=== PATIENT | male | born 1990 | race Two or more races ===

== ENCOUNTER 2018-04-11 15:38 | Emergency (ER) | payer BC, MEDICAID, OTHER ==
[~2018-04-11] VITALS: Ht 180.3 cm; Wt 82.8 kg
[2018-04-11 17:57] VITALS: BP 131/88
== END 2018-04-11 18:10 | disposition home or self-care (01) ==
LOC: ED 17:49
DX: S16.1XXA Strain of muscle, fascia and tendon at neck level, initial encounter (principal); V89.2XXA Person injured in unspecified motor-vehicle accident, traffic, initial encounter; Y93.89 Activity, other specified; Y99.8 Other external cause status; Y92.410 Unspecified street and highway as the place of occurrence of the external cause
CPT/HCPCS: 72125; 99284

== ENCOUNTER 2019-02-08 21:40 | Emergency (ER) | payer SELFPAY ==
[~2019-02-08] VITALS: Ht 180.3 cm; Wt 77.3 kg
== END 2019-02-08 22:16 | disposition left against medical advice (07) ==
LOC: ED 22:10
DX: R00.8 Other abnormalities of heart beat (principal); Z53.21 Procedure and treatment not carried out due to patient leaving prior to being seen by health care provider
CPT/HCPCS: 93005

== ENCOUNTER 2019-12-14 15:10 | Emergency (ER) | payer MEDICAID ==
[~2019-12-14] VITALS: Ht 175.3 cm; Wt 63.9 kg
[2019-12-14 15:59] LABS: ALANINE AMINOTRANSFERASE 11 U/L (12-78); ALBUMIN 2.1 g/dL (3.4-5.0); ANION GAP 5 mmol/L (5-15); CALCIUM 8.3 mg/dL (8.5-10.1); CHLORIDE 103 mmol/L (98-107); CREATININE 0.64 mg/dL (0.7-1.3)
[2019-12-14 16:01] LABS: ALKALINE PHOSPHATASE 106 U/L (45-117); BILIRUBIN,TOTAL 0.4 mg/dL (0.2-1.0); TOTAL PROTEIN 7.2 g/dL (6.4-8.2)
--- NOTE | 2019-12-14 16:16 | NUR ---
HOSPITAL CARRIER: FROM LOBBY TO ROOM AT THIS TIME
--- NOTE | 2019-12-14 16:17 | NUR ---
pt taken to room via Wheelchair. Changed into hospital gown, connected to monitors. pt in with C/O of "belly pain"
[2019-12-14 16:20] LABS: MEAN CORPUSCULAR HEMOGLOBIN 28.3 pg (27.5-34.5); MEAN CORPUSCULAR HGB CONC 31.8 g/dL (33.2-36.2); MEAN CORPUSCULAR VOLUME 88.9 fL (81-97); MEAN PLATELET VOLUME 7.6 fL (7.4-10.4); PLATELET COUNT 757 x10^3/uL (130-400); RED BLOOD COUNT 3.85 x10^6/uL (4.38-5.82); RED CELL DISTRIBUTION WIDTH 20.2 % (9.4-14.8)
[2019-12-14] MEDS ORDERED: SODIUM CHLORIDE 0.9% 1,000 ML IV ONE (16:28)
[2019-12-14] MEDS ORDERED: SODIUM CHLORIDE 0.9% 1,000ML IVBOLUS ONE (16:30)
[2019-12-14] MEDS ORDERED: SODIUM CHLORIDE FLUSH 10ML SYR IVF ONE (16:30)
[2019-12-14] MEDS ORDERED: ONDANSETRON 2MG/ML, 2ML IVPush ONE (16:30)
[2019-12-14 16:39] LABS: MD YES
[2019-12-14] MEDS ORDERED: HYDROmorphone 1 MG/ML, 1ML INJ ONE ×2 (16:41→17:37)
[2019-12-14] MEDS ORDERED: ONDANSETRON 2MG/ML, 2ML ONE (16:41)
[2019-12-14 16:42] LABS: BAND#(MANUAL) 1.02 x10^3/uL; BANDS%(MANUAL) 10 % (0-7); BASOS% (MANUAL) 1 % (0-1); LYMPH#(MANUAL) 1.63 x10^3/uL (1-3.4); LYMPHS% (MANUAL) 16 % (22-44); MONOS#(MANUAL) 0.41 x10^3/uL (0.3-2.7); MONOS% (MANUAL) 4 % (2-9); REACTIVE LYMPHS % (MANUAL) 1 % (0-0); SEG#(MANUAL) 6.94 x10^3/uL (1.8-6.8); SEGS% (MANUAL) 68 % (42-75)
[2019-12-14 16:45] LABS: HYPOCHROMIA 1+; MICROCYTOSIS 1+; POLYCHROMASIA 1+; SPHEROCYTES 1+
[2019-12-14 16:46] LABS: <PLATELET ESTIMATE> INCREASED; <PLT MORPHOLOGY> NORMAL PLT MORPH
[2019-12-14] MEDS: HYDROmorphone 2 MG/ML, 1ML IVPush PRN ×2 (16:58→17:38)
--- NOTE | 2019-12-14 17:29 | NUR ---
pt out of room to CT
[2019-12-14] MEDS ORDERED: OMNIPAQUE 350 MG/ML, 100ML BOTTLE ONE (17:33)
--- NOTE | 2019-12-14 17:35 | NUR ---
Returned from CT. C/O 05/12 sharp abd pain
[2019-12-14 18:13] VITALS: BP 126/87
[2019-12-14 18:13] LABS: MICROSCOPIC NOT IND
[2019-12-14 18:29] LABS: CULTURE INDICATED? NO
== END 2019-12-14 19:07 | disposition home or self-care (01) ==
LOC: ED 18:36
DX: A08.8 Other specified intestinal infections (principal); R00.0 Tachycardia, unspecified
CPT/HCPCS: 36415; 74177; 80053; 81003; 83690; 85025; 93005; 96361; 96374; 96375; 96376; 99285; J1170; J2405; J7030; Q9967

== ENCOUNTER 2020-01-27 20:34 | Inpatient (IN) | payer MEDICAID ==
[~2020-01-27] VITALS: Ht 175.3 cm; Wt 66.3 kg
--- NOTE | 2020-01-27 20:58 | NUR ---
Patient presents to ER c/o abd pain in all quadrants. He states he has had the pain since November but it has been getting worse. He was hospitalized in October for three weeks; patient was intubated for approx 1 week. Patient has had diarrhea since his discharge from the hospital. He was seen at [facility] since then and they stated he needed to see a GI doc. Patient has not seen a GI doc yet. Patient still "does not feel right." Patient is in NAD. Respirations even and unlabored.
[2020-01-27] MEDS ORDERED: ONDANSETRON 2MG/ML, 2ML ONE (21:27)
[2020-01-27] MEDS ORDERED: MORPHINE SULFATE 4 MG/ML, 1ML ONE (21:27)
[2020-01-27] MEDS ORDERED: ONDANSETRON 2MG/ML, 2ML IVPush ONE (21:30)
[2020-01-27] MEDS ORDERED: SODIUM CHLORIDE FLUSH 10ML SYR IVF ONE (21:30)
[2020-01-27] MEDS ORDERED: SODIUM CHLORIDE 0.9% 1,000ML IVBOLUS ONE ×2 (21:30→22:30)
[2020-01-27] MEDS ORDERED: MORPHINE SULFATE 4 MG/ML, 1ML IVPush PRN (21:30)
--- NOTE | 2020-01-27 21:31 | NUR ---
IV START, LABS DRAWN AND SENT. IVF INFUSING PER EMAR. PT APPEARS ANXIOUS. REPORTS "SPASM" IN ARM PRIOR TO IV START. PT REQUESTS TELEVISION ON.
[2020-01-27 21:40] LABS: MEAN CORPUSCULAR HEMOGLOBIN 25.7 pg (27.5-34.5); MEAN CORPUSCULAR HGB CONC 32.2 g/dL (33.2-36.2); MEAN CORPUSCULAR VOLUME 79.9 fL (81-97); MEAN PLATELET VOLUME 7.5 fL (7.4-10.4); PLATELET COUNT 732 x10^3/uL (130-400); RED BLOOD COUNT 5.25 x10^6/uL (4.38-5.82); RED CELL DISTRIBUTION WIDTH 19.1 % (9.4-14.8)
--- NOTE | 2020-01-27 21:41 | NUR ---
FLUIDS RUNNING. PT MEDICATED AND GIVEN A URINAL FOR UA. US AT BEDSIDE. CALL LIGHT IN REACH
[2020-01-27 21:53] LABS: BASOPHILS # (AUTO) 0.06 x10^3/uL (0-0.1); BASOPHILS % (AUTO) 0 % (0-1); EOSINOPHILS % (AUTO) 0 % (1-7); LYMPHOCYTES # (AUTO) 0.77 x10^3/uL (1-3.4); LYMPHOCYTES % (AUTO) 4 % (22-44); MD SCAN; MONOCYTES # (AUTO) 1.28 x10^3/uL (0.2-0.8); MONOCYTES % (AUTO) 6 % (2-9); NEUTROPHILS # (AUTO) 19.11 x10^3/uL (1.8-6.8); NEUTROPHILS % (AUTO) 90 % (42-75)
[2020-01-27 21:55] LABS: ALANINE AMINOTRANSFERASE 10 U/L (12-78); ALBUMIN 2.4 g/dL (3.4-5.0); ANION GAP 11 mmol/L (5-15); CALCIUM 8.9 mg/dL (8.5-10.1); CHLORIDE 100 mmol/L (98-107); CREATININE 0.93 mg/dL (0.7-1.3)
[2020-01-27 21:58] LABS: ALKALINE PHOSPHATASE 152 U/L (45-117); BILIRUBIN,TOTAL 0.2 mg/dL (0.2-1.0); TOTAL PROTEIN 7.9 g/dL (6.4-8.2)
--- NOTE | 2020-01-27 22:27 | NUR ---
2ND LITER OF FLUIDS RUNNING. PT TO CT
[2020-01-27] MEDS ORDERED: OMNIPAQUE 350 MG/ML, 100ML BOTTLE ONE (22:40)
[2020-01-27] MEDS ORDERED: HYDROmorphone 2 MG/ML, 1ML ONE (23:07)
[2020-01-27] MEDS ORDERED: PIPERACILLIN/TAZO/PMX 3.375GM 50 ML ONE (23:13)
[2020-01-27] MEDS ORDERED: PIPERACILLIN/TAZO/PMX 3.375GM 50 ML IV ONE (23:30)
[2020-01-27] MEDS ORDERED: HYDROmorphone 2 MG/ML, 1ML IVPush PRN (23:30)
--- NOTE | 2020-01-27 23:44 | NUR ---
ADMITTING MD AT BEDSIDE. EPORT CALLED TO FLOOR. WILL PLACE NG TUBE AFTER MD IS DONE
[2020-01-28] MEDS ORDERED: DIAZEPAM 5 MG/ML, 2ML ONE (00:15)
[2020-01-28 00:20] LABS: MICROSCOPIC NOT IND
[2020-01-28 00:21] LABS: CULTURE INDICATED? NO
[2020-01-28 00:25] LABS: AMPHETAMINE SCREEN, URINE Negative (Negative); BARBITURATE SCREEN, URINE Negative (Negative); BENZODIAZEPINE SCREEN, URINE Negative (Negative); CANNABINOID SCREEN, URINE Positive (Negative); COCAINE SCREEN, URINE Negative (Negative); METHADONE SCREEN, URINE Negative (Negative); OPIATE SCREEN, URINE Positive (Negative)
[2020-01-28] MEDS ORDERED: ONDANSETRON 2MG/ML, 2ML IVPush PRN (00:30)
[2020-01-28] MEDS ORDERED: hydrALAzine 20 MG/ML, 1ML IVPush PRN (00:30)
[2020-01-28] MEDS ORDERED: THIAMINE 200 MG in SODIUM CHLORIDE 0.9% 50 ML IV ONE (00:30)
[2020-01-28] MEDS ORDERED: DIAZEPAM 5 MG/ML, 10ML VIAL IV ONE (00:30)
[2020-01-28 00:37] LABS: INTERNATIONAL NORMALIZED RATIO 1.07 (0.93-1.1); PROTHROMBIN TIME 11.4 Seconds (9.6-11.5)
--- NOTE | 2020-01-28 00:40 | NUR ---
ng tube placed. Pt tolerated well. placedment verified by auscultation. placed on low continuous suction.
[2020-01-28 00:50] VITALS: BP 122/90
[2020-01-28] MEDS: LACTATED RINGERS 1,000 ML IV SCH ×4 (01:06→22:47)
[2020-01-28] MEDS ORDERED: [UNRECOGNIZED DRUG - OTHER] PO (01:38)
[2020-01-28] MEDS: HYDROmorphone 2 MG/ML, 1ML IVPush PRN ×5 (02:57→22:44)
[2020-01-28 03:13] LABS: ANION GAP 4 mmol/L (5-15); CALCIUM 8.1 mg/dL (8.5-10.1); CHLORIDE 105 mmol/L (98-107); CREATININE 0.48 mg/dL (0.7-1.3)
[2020-01-28 03:29] LABS: BASOPHILS # (AUTO) 0.05 x10^3/uL (0-0.1); BASOPHILS % (AUTO) 0 % (0-1); EOSINOPHILS % (AUTO) 0 % (1-7); LYMPHOCYTES % (AUTO) 9 % (22-44); MD SCAN; MEAN CORPUSCULAR HEMOGLOBIN 25.5 pg (27.5-34.5); MEAN CORPUSCULAR HGB CONC 31.7 g/dL (33.2-36.2); MEAN CORPUSCULAR VOLUME 80.5 fL (81-97); MEAN PLATELET VOLUME 6.9 fL (7.4-10.4); MONOCYTES # (AUTO) 1.89 x10^3/uL (0.2-0.8); MONOCYTES % (AUTO) 11 % (2-9); NEUTROPHILS # (AUTO) 14.07 x10^3/uL (1.8-6.8); NEUTROPHILS % (AUTO) 80 % (42-75); PLATELET COUNT 564 x10^3/uL (130-400); RED BLOOD COUNT 4.29 x10^6/uL (4.38-5.82); RED CELL DISTRIBUTION WIDTH 18.7 % (9.4-14.8)
[2020-01-28] MEDS: KETOROLAC 30 MG/1 ML IV PRN ×3 (06:08→18:29)
[2020-01-28] MEDS: PIPERACILLIN/TAZO/PMX 3.375GM 50 ML IV SCH ×3 (06:29→18:23)
[2020-01-28] MEDS: PANTOPRAZOLE 40 MG IV IVPush SCH (07:34)
[2020-01-28 08:09] VITALS: BP 116/82
[2020-01-28 12:49] VITALS: BP 125/89
[2020-01-28 13:32] LABS: OCCULT BLOOD POSITIVE (NEGATIVE)
[2020-01-28] MEDS ORDERED: GOLYTELY 4,000ML ORAL.SOL PO SCH (20:00)
[2020-01-28 21:33] VITALS: BP 110/76
[2020-01-29] MEDS: PIPERACILLIN/TAZO/PMX 3.375GM 50 ML IV SCH ×4 (00:33→17:37)
[2020-01-29 00:56] VITALS: BP 110/74
[2020-01-29] MEDS: KETOROLAC 30 MG/1 ML IV PRN ×3 (04:14→17:49)
[2020-01-29] MEDS: HYDROmorphone 2 MG/ML, 1ML IVPush PRN ×3 (04:15→17:49)
[2020-01-29 05:06] LABS: BASOPHILS # (AUTO) 0.02 x10^3/uL (0-0.1); BASOPHILS % (AUTO) 0 % (0-1); EOSINOPHILS # (AUTO) 0.07 x10^3/uL (0-0.4); EOSINOPHILS % (AUTO) 1 % (1-7); LYMPHOCYTES # (AUTO) 1.98 x10^3/uL (1-3.4); LYMPHOCYTES % (AUTO) 26 % (22-44); MD NO; MEAN CORPUSCULAR HEMOGLOBIN 25.8 pg (27.5-34.5); MEAN CORPUSCULAR HGB CONC 32.3 g/dL (33.2-36.2); MEAN CORPUSCULAR VOLUME 79.9 fL (81-97); MEAN PLATELET VOLUME 7.5 fL (7.4-10.4); MONOCYTES # (AUTO) 0.99 x10^3/uL (0.2-0.8); MONOCYTES % (AUTO) 13 % (2-9); NEUTROPHILS # (AUTO) 4.43 x10^3/uL (1.8-6.8); NEUTROPHILS % (AUTO) 59 % (42-75); PLATELET COUNT 405 x10^3/uL (130-400); RED BLOOD COUNT 3.75 x10^6/uL (4.38-5.82); RED CELL DISTRIBUTION WIDTH 18.5 % (9.4-14.8)
[2020-01-29 05:15] LABS: ANION GAP 3 mmol/L (5-15); CALCIUM 7.6 mg/dL (8.5-10.1); CHLORIDE 106 mmol/L (98-107)
[2020-01-29 05:16] LABS: CREATININE 0.57 mg/dL (0.7-1.3)
[2020-01-29] MEDS: LACTATED RINGERS 1,000 ML IV SCH ×3 (06:15→17:38)
[2020-01-29 06:43] VITALS: BP 98/58
[2020-01-29] MEDS: PANTOPRAZOLE 40 MG IV IVPush SCH (08:07)
[2020-01-29] MEDS ORDERED: HYDROmorphone 2 MG/ML, 1ML IVPush PRN (09:00)
[2020-01-29] MEDS ORDERED: ONDANSETRON 2MG/ML, 2ML IV PRN (09:00)
[2020-01-29] MEDS ORDERED: OXYcodone 5 MG/5 ML ORAL.SOL UDC PO PRN (09:00)
[2020-01-29] MEDS ORDERED: FENTANYL PF 100 MCG/2ML IV PRN (09:00)
[2020-01-29] MEDS ORDERED: LORazepam 2 MG/ML, 1ML IVPush PRN (09:00)
[2020-01-29] MEDS ORDERED: ACETAMINOPHEN 325 MG TABLET PO PRN (09:00)
[2020-01-29] MEDS ORDERED: FENTANYL PF 100 MCG/2ML ONE (09:16)
[2020-01-29] MEDS ORDERED: ROCURONIUM 10 MG/ML,10ML ONE (09:30)
[2020-01-29] MEDS ORDERED: SUGAMMADEX 200 MG/2 ML IVPush ONE (09:30)
[2020-01-29] MEDS ORDERED: PROPOFOL 10 MG/ML, 100ML IV ONE (09:30)
[2020-01-29 13:34] VITALS: BP 96/59
[2020-01-29] MEDS: methylPREDNISolone SOD SUCC 40 MG/ML IVPush SCH (14:36)
[2020-01-29 18:19] VITALS: BP 119/69
[2020-01-30] MEDS: PIPERACILLIN/TAZO/PMX 3.375GM 50 ML IV SCH ×4 (00:53→17:41)
[2020-01-30 01:02] VITALS: BP 114/64
[2020-01-30] MEDS: KETOROLAC 30 MG/1 ML IV PRN (01:18)
[2020-01-30] MEDS: methylPREDNISolone SOD SUCC 40 MG/ML IVPush SCH ×2 (02:28→14:17)
[2020-01-30] MEDS: HYDROmorphone 2 MG/ML, 1ML IVPush PRN ×4 (02:28→21:40)
[2020-01-30] MEDS: LACTATED RINGERS 1,000 ML IV SCH (02:54)
[2020-01-30 06:29] LABS: ALBUMIN 1.8 g/dL (3.4-5.0); ANION GAP 9 mmol/L (5-15); CHLORIDE 109 mmol/L (98-107); CREATININE 0.38 mg/dL (0.7-1.3)
[2020-01-30 06:31] LABS: BASOPHILS # (AUTO) 0.01 x10^3/uL (0-0.1); BASOPHILS % (AUTO) 0 % (0-1); EOSINOPHILS % (AUTO) 0 % (1-7); LYMPHOCYTES # (AUTO) 0.67 x10^3/uL (1-3.4); LYMPHOCYTES % (AUTO) 15 % (22-44); MD NO; MEAN CORPUSCULAR HEMOGLOBIN 25.8 pg (27.5-34.5); MEAN CORPUSCULAR HGB CONC 32.4 g/dL (33.2-36.2); MEAN CORPUSCULAR VOLUME 79.7 fL (81-97); MEAN PLATELET VOLUME 7.8 fL (7.4-10.4); MONOCYTES # (AUTO) 0.12 x10^3/uL (0.2-0.8); MONOCYTES % (AUTO) 3 % (2-9); NEUTROPHILS # (AUTO) 3.78 x10^3/uL (1.8-6.8); NEUTROPHILS % (AUTO) 82 % (42-75); PLATELET COUNT 423 x10^3/uL (130-400); RED BLOOD COUNT 3.84 x10^6/uL (4.38-5.82); RED CELL DISTRIBUTION WIDTH 19.3 % (9.4-14.8)
[2020-01-30 06:56] VITALS: BP 110/75
[2020-01-30] MEDS: PANTOPRAZOLE 40 MG IV IVPush SCH (07:52)
[2020-01-30] MEDS: POTASSIUM CHLORIDE 20 MEQ in LACTATED RINGERS 1,000 ML IV SCH (10:33)
[2020-01-30 13:22] VITALS: BP 110/62
[2020-01-30] MEDS: POLYETHYLENE GLYCOL 17 GM PACKET PO SCH (14:17)
[2020-01-30 20:18] VITALS: BP 130/85
[2020-01-31] MEDS: PIPERACILLIN/TAZO/PMX 3.375GM 50 ML IV SCH ×4 (00:01→17:58)
[2020-01-31 00:33] VITALS: BP 120/85
[2020-01-31] MEDS: methylPREDNISolone SOD SUCC 40 MG/ML IVPush SCH ×2 (01:21→13:01)
[2020-01-31] MEDS: POTASSIUM CHLORIDE 20 MEQ in LACTATED RINGERS 1,000 ML IV SCH ×2 (05:03→19:40)
[2020-01-31] MEDS: HYDROmorphone 2 MG/ML, 1ML IVPush PRN ×5 (05:04→21:59)
[2020-01-31 05:41] LABS: BASOPHILS % (AUTO) 0 % (0-1); EOSINOPHILS # (AUTO) 0.02 x10^3/uL (0-0.4); EOSINOPHILS % (AUTO) 0 % (1-7); LYMPHOCYTES # (AUTO) 0.66 x10^3/uL (1-3.4); LYMPHOCYTES % (AUTO) 13 % (22-44); MD NO; MEAN CORPUSCULAR HEMOGLOBIN 25.9 pg (27.5-34.5); MEAN CORPUSCULAR HGB CONC 32.2 g/dL (33.2-36.2); MEAN CORPUSCULAR VOLUME 80.3 fL (81-97); MEAN PLATELET VOLUME 7.7 fL (7.4-10.4); MONOCYTES # (AUTO) 0.21 x10^3/uL (0.2-0.8); MONOCYTES % (AUTO) 4 % (2-9); NEUTROPHILS # (AUTO) 4.14 x10^3/uL (1.8-6.8); NEUTROPHILS % (AUTO) 82 % (42-75); PLATELET COUNT 412 x10^3/uL (130-400); RED BLOOD COUNT 3.64 x10^6/uL (4.38-5.82); RED CELL DISTRIBUTION WIDTH 19.1 % (9.4-14.8)
[2020-01-31 05:44] LABS: CALCIUM 7.7 mg/dL (8.5-10.1); CHLORIDE 111 mmol/L (98-107)
[2020-01-31 05:50] LABS: ALANINE AMINOTRANSFERASE 7 U/L (12-78); ALBUMIN 1.8 g/dL (3.4-5.0); ALKALINE PHOSPHATASE 91 U/L (45-117); ANION GAP 7 mmol/L (5-15); BILIRUBIN,TOTAL 0.2 mg/dL (0.2-1.0); CREATININE 0.46 mg/dL (0.7-1.3); TOTAL PROTEIN 5.7 g/dL (6.4-8.2)
[2020-01-31 08:00] VITALS: BP 115/71
[2020-01-31] MEDS ORDERED: POTASSIUM PHOSPHATE 44 MEQ in SODIUM CHLORIDE 0.9% 500 ML IV ONE (08:00)
[2020-01-31] MEDS: POLYETHYLENE GLYCOL 17 GM PACKET PO SCH (08:37)
[2020-01-31] MEDS: PANTOPRAZOLE 40 MG IV IVPush SCH (08:37)
[2020-01-31] MEDS ORDERED: MAALOX/HYOSCYAMINE/LIDOCAINE 45 ML BTL PO PRN (12:30)
[2020-01-31 15:29] VITALS: BP 117/72
[2020-01-31 19:39] VITALS: BP 115/74
[2020-02-01] MEDS: PIPERACILLIN/TAZO/PMX 3.375GM 50 ML IV SCH ×3 (00:29→11:51)
[2020-02-01 00:39] VITALS: BP 100/61
[2020-02-01] MEDS: methylPREDNISolone SOD SUCC 40 MG/ML IVPush SCH ×2 (01:12→13:32)
[2020-02-01] MEDS: HYDROmorphone 2 MG/ML, 1ML IVPush PRN ×8 (01:47→23:17)
[2020-02-01] MEDS: POTASSIUM CHLORIDE 20 MEQ in LACTATED RINGERS 1,000 ML IV SCH (04:58)
[2020-02-01 05:12] LABS: BASOPHILS # (AUTO) 0.02 x10^3/uL (0-0.1); BASOPHILS % (AUTO) 0 % (0-1); EOSINOPHILS % (AUTO) 0 % (1-7); LYMPHOCYTES # (AUTO) 0.97 x10^3/uL (1-3.4); LYMPHOCYTES % (AUTO) 16 % (22-44); MD NO; MEAN CORPUSCULAR HEMOGLOBIN 25.7 pg (27.5-34.5); MEAN CORPUSCULAR HGB CONC 31.7 g/dL (33.2-36.2); MONOCYTES # (AUTO) 0.25 x10^3/uL (0.2-0.8); MONOCYTES % (AUTO) 4 % (2-9); NEUTROPHILS # (AUTO) 4.72 x10^3/uL (1.8-6.8); NEUTROPHILS % (AUTO) 79 % (42-75); PLATELET COUNT 444 x10^3/uL (130-400); RED BLOOD COUNT 4.01 x10^6/uL (4.38-5.82); RED CELL DISTRIBUTION WIDTH 19.4 % (9.4-14.8)
[2020-02-01 05:20] LABS: ANION GAP 7 mmol/L (5-15); CALCIUM 7.7 mg/dL (8.5-10.1); CHLORIDE 111 mmol/L (98-107); CREATININE 0.52 mg/dL (0.7-1.3)
[2020-02-01 07:00] VITALS: BP 111/73
[2020-02-01] MEDS: PANTOPRAZOLE 40 MG IV IVPush SCH (08:23)
[2020-02-01] MEDS: POLYETHYLENE GLYCOL 17 GM PACKET PO SCH (08:24)
[2020-02-01] MEDS ORDERED: GOLYTELY 4,000ML ORAL.SOL PO SCH (09:00)
[2020-02-01] MEDS ORDERED: GOLYTELY 4,000ML ORAL.SOL PO ONE (09:30)
[2020-02-01] MEDS: metroNIDAZOLE 500 MG TABLET PO SCH ×3 (11:51→23:16)
[2020-02-01] MEDS: NEOMYCIN SULFATE 500 MG TABLET PO SCH ×3 (11:51→23:17)
[2020-02-01 14:00] VITALS: BP 120/83
[2020-02-01 18:56] VITALS: BP 117/71
[2020-02-01] MEDS: KETOROLAC 30 MG/1 ML IV PRN (20:34)
[2020-02-02 01:07] VITALS: BP 101/68
[2020-02-02] MEDS: methylPREDNISolone SOD SUCC 40 MG/ML IVPush SCH ×2 (01:28→13:58)
[2020-02-02] MEDS: HYDROmorphone 2 MG/ML, 1ML IVPush PRN ×6 (01:29→23:50)
[2020-02-02] MEDS ORDERED: HYDROmorphone 1 MG/ML, 1ML INJ IV ONE (01:30)
[2020-02-02] MEDS ORDERED: LORazepam 1MG TABLET PO ONE (01:30)
[2020-02-02 05:25] LABS: MEAN CORPUSCULAR HGB CONC 32.1 g/dL (33.2-36.2); MEAN CORPUSCULAR VOLUME 80.9 fL (81-97); PLATELET COUNT 588 x10^3/uL (130-400); RED BLOOD COUNT 4.86 x10^6/uL (4.38-5.82)
[2020-02-02 05:30] LABS: ALBUMIN 2.1 g/dL (3.4-5.0); ANION GAP 6 mmol/L (5-15); CALCIUM 8.5 mg/dL (8.5-10.1); CHLORIDE 107 mmol/L (98-107); CREATININE 0.61 mg/dL (0.7-1.3)
[2020-02-02 05:41] LABS: MD YES
[2020-02-02 05:44] LABS: LYMPH#(MANUAL) 0.54 x10^3/uL (1-3.4); LYMPHS% (MANUAL) 2 % (22-44); MONOS#(MANUAL) 0.54 x10^3/uL (0.3-2.7); MONOS% (MANUAL) 2 % (2-9); SEG#(MANUAL) 25.73 x10^3/uL (1.8-6.8); SEGS% (MANUAL) 96 % (42-75)
[2020-02-02 05:46] LABS: <PLATELET ESTIMATE> INCREASED; <PLT MORPHOLOGY> NORMAL PLT MORPH; ANISOCYTOSIS 1+; HYPOCHROMIA 1+; MICROCYTOSIS 1+
[2020-02-02] MEDS ORDERED: BUPIVACAINE/PF 0.5% ONE (07:32)
[2020-02-02] MEDS ORDERED: INDOCYANINE GREEN 25 MG VIAL ONE (07:32)
[2020-02-02] MEDS ORDERED: SUCCINYLCHOLINE 20 MG/ML, 10ML ONE (07:40)
[2020-02-02] MEDS ORDERED: PROPOFOL 10 MG/ML, 20ML ONE (07:40)
[2020-02-02] MEDS ORDERED: ROCURONIUM 10 MG/ML,10ML ONE (07:40)
[2020-02-02] MEDS ORDERED: CEFOTETAN 2 GM ONE (07:40)
[2020-02-02] MEDS ORDERED: DEXAMETHASONE 4 MG/ML, 1ML ONE (07:40)
[2020-02-02] MEDS ORDERED: ONDANSETRON 2MG/ML, 2ML ONE (07:40)
[2020-02-02] MEDS ORDERED: PROMETHAZINE 25 MG/ML, 1ML IV PRN (09:00)
[2020-02-02] MEDS ORDERED: ALBUTEROL SULFATE 2.5 MG/3 ML NPPB PRN (09:00)
[2020-02-02] MEDS ORDERED: ONDANSETRON 2MG/ML, 2ML IVPush PRN (09:00)
[2020-02-02] MEDS ORDERED: OXYcodone 5 MG/5 ML ORAL.SOL UDC PO PRN (09:00)
[2020-02-02] MEDS ORDERED: DIAZEPAM 5 MG/ML, 2ML IV PRN ×2 (09:00)
[2020-02-02] MEDS ORDERED: LABETALOL 5MG/ML, 20ML IV PRN (09:00)
[2020-02-02] MEDS ORDERED: hydrALAzine 20 MG/ML, 1ML IV PRN (09:00)
[2020-02-02] MEDS ORDERED: METOCLOPRAMIDE 5 MG/ML, 2ML IV PRN (09:00)
[2020-02-02] MEDS ORDERED: MEPERIDINE/PF 25MG/0.5ML IVPush PRN (09:00)
[2020-02-02] MEDS ORDERED: KETOROLAC 30 MG/1 ML IV PRN (09:00)
[2020-02-02] MEDS ORDERED: METHYLENE BLUE 10 MG/ML 10ML ONE (09:55)
[2020-02-02] MEDS ORDERED: KETOROLAC 30 MG/1 ML ONE (10:54)
[2020-02-02] MEDS ORDERED: MEPERIDINE/PF 25MG/ML,1ML ONE (10:55)
[2020-02-02] MEDS ORDERED: FENTANYL PF 100 MCG/2ML ONE (11:02)
[2020-02-02] MEDS: FENTANYL PF 100 MCG/2ML IV PRN ×2 (11:04→11:10)
[2020-02-02] MEDS ORDERED: HYDROmorphone 1 MG/ML, 1ML INJ ONE ×2 (11:20→11:41)
[2020-02-02] MEDS: HYDROmorphone 1 MG/ML, 1ML INJ IV PRN ×3 (11:23→11:46)
[2020-02-02] MEDS ORDERED: OXYcodone 5 MG/5 ML ORAL.SOL UDC ONE (11:51)
[2020-02-02] MEDS ORDERED: LORazepam 2 MG/ML, 1ML ONE (12:04)
[2020-02-02] MEDS ORDERED: LORazepam 2 MG/ML, 1ML IVPush PRN (12:30)
[2020-02-02] MEDS ORDERED: PIPERACILLIN/TAZO/PMX 3.375GM 50 ML IV SCH (13:30)
[2020-02-02] MEDS ORDERED: MAGNESIUM SULFATE PMX 2GM/50ML 50 ML IV ONE (13:30)
[2020-02-02] MEDS: PANTOPRAZOLE 40 MG IV IVPush SCH (13:58)
[2020-02-02] MEDS ORDERED: LORazepam 2 MG/ML, 1ML IVPush ONE (14:00)
[2020-02-02 16:18] LABS: MICROSCOPIC INDICATED
[2020-02-02 17:17] VITALS: BP 132/93
[2020-02-02 20:13] VITALS: BP 138/88
[2020-02-02] MEDS: PIPERACILLIN/TAZO/PMX 3.375GM 50 ML IV SCH (20:45)
[2020-02-03 00:08] VITALS: BP 134/91
[2020-02-03] MEDS: methylPREDNISolone SOD SUCC 40 MG/ML IVPush SCH ×2 (02:25→14:18)
[2020-02-03] MEDS: PIPERACILLIN/TAZO/PMX 3.375GM 50 ML IV SCH ×4 (02:25→19:47)
[2020-02-03] MEDS: HYDROmorphone 2 MG/ML, 1ML IVPush PRN ×6 (03:05→19:47)
[2020-02-03 03:51] VITALS: BP 140/98
[2020-02-03 05:22] LABS: ANION GAP 5 mmol/L (5-15); CALCIUM 7.9 mg/dL (8.5-10.1); CHLORIDE 102 mmol/L (98-107); CREATININE 0.53 mg/dL (0.7-1.3)
[2020-02-03 05:36] LABS: MEAN CORPUSCULAR HEMOGLOBIN 26.1 pg (27.5-34.5); MEAN CORPUSCULAR HGB CONC 32.3 g/dL (33.2-36.2); MEAN CORPUSCULAR VOLUME 80.9 fL (81-97); MEAN PLATELET VOLUME 7.4 fL (7.4-10.4); PLATELET COUNT 476 x10^3/uL (130-400); RED BLOOD COUNT 3.93 x10^6/uL (4.38-5.82); RED CELL DISTRIBUTION WIDTH 20.2 % (9.4-14.8)
[2020-02-03 06:09] LABS: MD YES
[2020-02-03 06:11] LABS: ANISOCYTOSIS 1+; LYMPH#(MANUAL) 0.48 x10^3/uL (1-3.4); LYMPHS% (MANUAL) 1 % (22-44); MICROCYTOSIS 1+; MONOS#(MANUAL) 0.95 x10^3/uL (0.3-2.7); MONOS% (MANUAL) 2 % (2-9); SEG#(MANUAL) 46.27 x10^3/uL (1.8-6.8); SEGS% (MANUAL) 97 % (42-75)
[2020-02-03 06:12] LABS: <PLATELET ESTIMATE> INCREASED
[2020-02-03 06:13] LABS: <PLT MORPHOLOGY> NORMAL PLT MORPH
[2020-02-03 07:42] VITALS: BP 117/84
[2020-02-03] MEDS: PANTOPRAZOLE 40 MG IV IVPush SCH (08:12)
[2020-02-03] MEDS: SODIUM CHLORIDE 0.9% 1,000 ML IV SCH ×3 (10:01→16:30)
[2020-02-03 12:10] VITALS: BP 136/104
[2020-02-03] MEDS ORDERED: LORazepam 2 MG/ML, 1ML IVPush PRN (14:30)
[2020-02-03 19:05] VITALS: BP 127/88
[2020-02-04] MEDS: HYDROmorphone 2 MG/ML, 1ML IVPush PRN ×7 (00:07→20:39)
[2020-02-04] MEDS: SODIUM CHLORIDE 0.9% 1,000 ML IV SCH ×3 (00:10→18:09)
[2020-02-04 00:39] VITALS: BP 120/87
[2020-02-04] MEDS: PIPERACILLIN/TAZO/PMX 3.375GM 50 ML IV SCH ×4 (01:51→20:38)
[2020-02-04] MEDS: methylPREDNISolone SOD SUCC 40 MG/ML IVPush SCH ×2 (01:51→15:04)
[2020-02-04 05:47] LABS: MEAN CORPUSCULAR HEMOGLOBIN 25.8 pg (27.5-34.5); MEAN CORPUSCULAR VOLUME 80.7 fL (81-97); MEAN PLATELET VOLUME 7.8 fL (7.4-10.4); PLATELET COUNT 451 x10^3/uL (130-400); RED BLOOD COUNT 3.63 x10^6/uL (4.38-5.82); RED CELL DISTRIBUTION WIDTH 20.1 % (9.4-14.8)
[2020-02-04 05:49] LABS: ANION GAP 7 mmol/L (5-15); CALCIUM 8.1 mg/dL (8.5-10.1); CHLORIDE 105 mmol/L (98-107)
[2020-02-04 06:16] LABS: MD YES
[2020-02-04 06:18] LABS: LYMPH#(MANUAL) 0.89 x10^3/uL (1-3.4); LYMPHS% (MANUAL) 3 % (22-44); MONOS#(MANUAL) 0.59 x10^3/uL (0.3-2.7); MONOS% (MANUAL) 2 % (2-9); SEG#(MANUAL) 28.22 x10^3/uL (1.8-6.8); SEGS% (MANUAL) 95 % (42-75)
[2020-02-04 06:19] LABS: <PLATELET ESTIMATE> INCREASED; <PLT MORPHOLOGY> NORMAL PLT MORPH; ANISOCYTOSIS 1+; MICROCYTOSIS 1+
[2020-02-04] MEDS: PANTOPRAZOLE 40 MG IV IVPush SCH (09:22)
[2020-02-04 09:58] VITALS: BP 120/72
[2020-02-04 13:17] VITALS: BP 120/83
[2020-02-04 18:24] VITALS: BP 130/87
[2020-02-04] MEDS: HYDROcodone/APAP 10/325 MG TABLET PO PRN (23:52)
[2020-02-05 00:05] VITALS: BP 123/61
[2020-02-05] MEDS: PIPERACILLIN/TAZO/PMX 3.375GM 50 ML IV SCH ×4 (01:57→19:55)
[2020-02-05] MEDS: methylPREDNISolone SOD SUCC 40 MG/ML IVPush SCH ×2 (01:57→14:34)
[2020-02-05] MEDS: SODIUM CHLORIDE 0.9% 1,000 ML IV SCH ×3 (01:58→17:44)
[2020-02-05] MEDS: HYDROmorphone 2 MG/ML, 1ML IVPush PRN ×4 (01:58→19:39)
[2020-02-05 04:32] LABS: ANION GAP 9 mmol/L (5-15); CALCIUM 7.6 mg/dL (8.5-10.1); CHLORIDE 106 mmol/L (98-107); CREATININE 0.57 mg/dL (0.7-1.3)
[2020-02-05 04:40] LABS: MEAN CORPUSCULAR HEMOGLOBIN 25.6 pg (27.5-34.5); MEAN CORPUSCULAR HGB CONC 31.7 g/dL (33.2-36.2); MEAN CORPUSCULAR VOLUME 80.8 fL (81-97); MEAN PLATELET VOLUME 8.1 fL (7.4-10.4); PLATELET COUNT 423 x10^3/uL (130-400); RED BLOOD COUNT 3.44 x10^6/uL (4.38-5.82); RED CELL DISTRIBUTION WIDTH 20.3 % (9.4-14.8)
[2020-02-05 05:15] LABS: MD YES
[2020-02-05 05:16] LABS: LYMPH#(MANUAL) 0.47 x10^3/uL (1-3.4); LYMPHS% (MANUAL) 2 % (22-44); MONOS#(MANUAL) 1.41 x10^3/uL (0.3-2.7); MONOS% (MANUAL) 6 % (2-9); SEG#(MANUAL) 21.62 x10^3/uL (1.8-6.8); SEGS% (MANUAL) 92 % (42-75)
[2020-02-05 05:17] LABS: <PLATELET ESTIMATE> INCREASED; <PLT MORPHOLOGY> NORMAL PLT MORPH; ANISOCYTOSIS 1+; MICROCYTOSIS 1+; POLYCHROMASIA 1+; TEAR DROPS 1+
[2020-02-05 07:20] VITALS: BP 132/84
[2020-02-05] MEDS: PANTOPRAZOLE 40 MG IV IVPush SCH (07:29)
[2020-02-05] MEDS ORDERED: POTASSIUM CHLORIDE 20 MEQ TAB.ER.PRT PO ONE (10:00)
[2020-02-05] MEDS ORDERED: MAGNESIUM SULFATE PMX 2GM/50ML 50 ML IV ONE (10:00)
[2020-02-05] MEDS: HYDROcodone/APAP 10/325 MG TABLET PO PRN ×3 (11:22→23:01)
[2020-02-05 13:26] VITALS: BP 147/103
[2020-02-05 19:01] VITALS: BP 137/79
[2020-02-06 00:47] VITALS: BP 108/70
[2020-02-06] MEDS: HYDROmorphone 2 MG/ML, 1ML IVPush PRN ×4 (01:44→20:07)
[2020-02-06] MEDS: PIPERACILLIN/TAZO/PMX 3.375GM 50 ML IV SCH ×4 (01:44→20:07)
[2020-02-06] MEDS: methylPREDNISolone SOD SUCC 40 MG/ML IVPush SCH ×2 (01:44→15:16)
[2020-02-06] MEDS: HYDROcodone/APAP 10/325 MG TABLET PO PRN ×4 (05:25→23:43)
[2020-02-06 05:38] LABS: MEAN CORPUSCULAR HEMOGLOBIN 25.8 pg (27.5-34.5); MEAN CORPUSCULAR HGB CONC 31.8 g/dL (33.2-36.2); MEAN CORPUSCULAR VOLUME 80.9 fL (81-97); MEAN PLATELET VOLUME 7.5 fL (7.4-10.4); PLATELET COUNT 493 x10^3/uL (130-400); RED BLOOD COUNT 3.69 x10^6/uL (4.38-5.82); RED CELL DISTRIBUTION WIDTH 19.7 % (9.4-14.8)
[2020-02-06 05:52] LABS: ANION GAP 4 mmol/L (5-15); CALCIUM 7.8 mg/dL (8.5-10.1); CHLORIDE 106 mmol/L (98-107)
[2020-02-06 05:53] LABS: CREATININE 0.49 mg/dL (0.7-1.3)
[2020-02-06] MEDS: SODIUM CHLORIDE 0.9% 1,000 ML IV SCH ×2 (05:58→23:29)
[2020-02-06 06:01] LABS: MD YES
[2020-02-06 06:02] LABS: LYMPH#(MANUAL) 1.09 x10^3/uL (1-3.4); LYMPHS% (MANUAL) 5 % (22-44); MONOS#(MANUAL) 0.22 x10^3/uL (0.3-2.7); MONOS% (MANUAL) 1 % (2-9); SEGS% (MANUAL) 94 % (42-75)
[2020-02-06 06:03] LABS: ANISOCYTOSIS 1+; MICROCYTOSIS 1+; POLYCHROMASIA 1+
[2020-02-06 06:04] LABS: <PLATELET ESTIMATE> INCREASED; <PLT MORPHOLOGY> NORMAL PLT MORPH
[2020-02-06 06:06] LABS: PMNS WITH VACUOLES 1+
[2020-02-06] MEDS: PANTOPRAZOLE 40 MG IV IVPush SCH (08:03)
[2020-02-06 09:24] VITALS: BP 111/78
[2020-02-06] MEDS ORDERED: FLUCONAZOLE 400 MG/200 ML 200 ML IV SCH (12:30)
[2020-02-06 13:22] LABS: ALANINE AMINOTRANSFERASE 17 U/L (12-78); ALBUMIN 1.6 g/dL (3.4-5.0)
[2020-02-06 13:24] LABS: ALKALINE PHOSPHATASE 72 U/L (45-117); BILIRUBIN,TOTAL 0.2 mg/dL (0.2-1.0); TOTAL PROTEIN 5.4 g/dL (6.4-8.2)
[2020-02-06 13:26] LABS: BILIRUBIN, DIRECT < 0.1 mg/dL (0.1-0.2); BILIRUBIN,INDIRECT 0.1 mg/dL (0.0-2.0)
[2020-02-06 15:20] VITALS: BP 129/83
[2020-02-06] MEDS: LORazepam 1MG TABLET PO PRN (15:39)
[2020-02-06 19:03] VITALS: BP 130/90
[2020-02-06] MEDS: NEUTRA PHOS K 250 MG TABLET PO SCH (20:06)
[2020-02-07 01:10] VITALS: BP 131/85
[2020-02-07] MEDS: PIPERACILLIN/TAZO/PMX 3.375GM 50 ML IV SCH ×4 (02:14→19:26)
[2020-02-07] MEDS: methylPREDNISolone SOD SUCC 40 MG/ML IVPush SCH ×2 (02:14→13:45)
[2020-02-07] MEDS: HYDROmorphone 2 MG/ML, 1ML IVPush PRN ×3 (02:15→19:27)
[2020-02-07 05:29] LABS: MEAN CORPUSCULAR HEMOGLOBIN 25.9 pg (27.5-34.5); MEAN CORPUSCULAR HGB CONC 32.1 g/dL (33.2-36.2); MEAN CORPUSCULAR VOLUME 80.6 fL (81-97); MEAN PLATELET VOLUME 7.6 fL (7.4-10.4); PLATELET COUNT 523 x10^3/uL (130-400); RED BLOOD COUNT 4.19 x10^6/uL (4.38-5.82); RED CELL DISTRIBUTION WIDTH 20.4 % (9.4-14.8)
[2020-02-07 05:38] LABS: CHLORIDE 107 mmol/L (98-107)
[2020-02-07 05:45] LABS: ALANINE AMINOTRANSFERASE 86 U/L (12-78); ALBUMIN 2.2 g/dL (3.4-5.0); ALKALINE PHOSPHATASE 121 U/L (45-117); ANION GAP 6 mmol/L (5-15); BILIRUBIN,TOTAL 0.3 mg/dL (0.2-1.0); CALCIUM 8.3 mg/dL (8.5-10.1); CREATININE 0.51 mg/dL (0.7-1.3); TOTAL PROTEIN 6.7 g/dL (6.4-8.2)
[2020-02-07 06:07] LABS: MD YES
[2020-02-07 06:08] LABS: LYMPH#(MANUAL) 1.12 x10^3/uL (1-3.4); LYMPHS% (MANUAL) 5 % (22-44); METAMYELOCYTES# (MANUAL) 0.22 x10^3/uL (0-0); METAMYELOCYTES% (MANUAL) 1 % (0-1); MONOS#(MANUAL) 0.22 x10^3/uL (0.3-2.7); MONOS% (MANUAL) 1 % (2-9); MYELOCYTES# (MANUAL) 0.22 x10^3/uL (0-0); MYELOCYTES% (MANUAL) 1 % (0-0); SEG#(MANUAL) 20.52 x10^3/uL (1.8-6.8); SEGS% (MANUAL) 92 % (42-75)
[2020-02-07 06:09] LABS: <PLATELET ESTIMATE> INCREASED; <PLT MORPHOLOGY> NORMAL PLT MORPH; ANISOCYTOSIS 1+; POLYCHROMASIA 1+
[2020-02-07] MEDS: PANTOPRAZOLE 40MG TABLET PO SCH (06:33)
[2020-02-07] MEDS: HYDROcodone/APAP 10/325 MG TABLET PO PRN (06:33)
[2020-02-07 07:29] VITALS: BP 128/93
[2020-02-07] MEDS: OXYcodone IR 5MG TABLET PO PRN ×4 (09:02→23:04)
[2020-02-07] MEDS: NEUTRA PHOS K 250 MG TABLET PO SCH ×2 (09:02→19:26)
[2020-02-07 12:17] LABS: HCT (SEDRATE) 28.1 % (39.2-51.8)
[2020-02-07] MEDS: MICAFUNGIN 100 MG in SODIUM CHLORIDE 0.9% 100 ML IV SCH (12:20)
[2020-02-07 13:55] VITALS: BP 127/76
[2020-02-07 20:20] VITALS: BP 129/70
[2020-02-07] MEDS: ACETAMINOPHEN 325 MG TABLET PO PRN (23:03)
[2020-02-08] MEDS: PIPERACILLIN/TAZO/PMX 3.375GM 50 ML IV SCH ×4 (01:54→20:12)
[2020-02-08] MEDS: methylPREDNISolone SOD SUCC 40 MG/ML IVPush SCH ×2 (01:54→14:39)
[2020-02-08 02:08] VITALS: BP 115/80
[2020-02-08] MEDS: HYDROmorphone 2 MG/ML, 1ML IVPush PRN (03:41)
[2020-02-08 05:35] LABS: MEAN CORPUSCULAR HEMOGLOBIN 26.2 pg (27.5-34.5); MEAN CORPUSCULAR HGB CONC 32.1 g/dL (33.2-36.2); MEAN CORPUSCULAR VOLUME 81.6 fL (81-97); MEAN PLATELET VOLUME 7.9 fL (7.4-10.4); PLATELET COUNT 401 x10^3/uL (130-400); RED CELL DISTRIBUTION WIDTH 19.8 % (9.4-14.8)
[2020-02-08 05:42] LABS: CALCIUM 7.9 mg/dL (8.5-10.1); CHLORIDE 106 mmol/L (98-107)
[2020-02-08 05:48] LABS: ALANINE AMINOTRANSFERASE 126 U/L (12-78); ALKALINE PHOSPHATASE 128 U/L (45-117); ANION GAP 9 mmol/L (5-15); BILIRUBIN,TOTAL 0.3 mg/dL (0.2-1.0); TOTAL PROTEIN 5.8 g/dL (6.4-8.2)
[2020-02-08 06:13] LABS: MD YES
[2020-02-08 06:14] LABS: EOS#(MANUAL) 0.25 x10^3/uL (0.0-0.4); EOS% (MANUAL) 1 % (1-7); LYMPH#(MANUAL) 0.99 x10^3/uL (1-3.4); LYMPHS% (MANUAL) 4 % (22-44); MONOS#(MANUAL) 0.99 x10^3/uL (0.3-2.7); MONOS% (MANUAL) 4 % (2-9); MYELOCYTES# (MANUAL) 0.25 x10^3/uL (0-0); MYELOCYTES% (MANUAL) 1 % (0-0)
[2020-02-08 06:15] LABS: NRBC % (MANUAL) 1 % (0-1)
[2020-02-08 06:16] LABS: <PLATELET ESTIMATE> ADEQUATE; <PLT MORPHOLOGY> NORMAL PLT MORPH; ANISOCYTOSIS 1+; HYPOCHROMIA 1+; OVALOCYTES 1+; POLYCHROMASIA 1+
[2020-02-08 06:17] LABS: METAMYELOCYTES# (MANUAL) 0.25 x10^3/uL (0-0); METAMYELOCYTES% (MANUAL) 1 % (0-1); SEGS% (MANUAL) 89 % (42-75)
[2020-02-08] MEDS: OXYcodone IR 5MG TABLET PO PRN ×4 (06:27→20:13)
[2020-02-08] MEDS: PANTOPRAZOLE 40MG TABLET PO SCH (06:27)
[2020-02-08] MEDS: ACETAMINOPHEN 325 MG TABLET PO PRN (06:27)
[2020-02-08 06:46] VITALS: BP 121/74
[2020-02-08] MEDS ORDERED: MAGNESIUM SULFATE PMX 2GM/50ML 50 ML IV ONE (07:00)
[2020-02-08] MEDS: MAGNESIUM OXIDE 400 MG TABLET PO SCH ×2 (09:12→20:12)
[2020-02-08] MEDS: NEUTRA PHOS K 250 MG TABLET PO SCH ×3 (09:12→20:12)
[2020-02-08] MEDS: MICAFUNGIN 100 MG in SODIUM CHLORIDE 0.9% 100 ML IV SCH (11:27)
[2020-02-08 13:39] VITALS: BP 128/85
[2020-02-08 19:48] VITALS: BP 135/92
[2020-02-09 00:24] VITALS: BP 133/96
[2020-02-09] MEDS: ACETAMINOPHEN 325 MG TABLET PO PRN ×2 (00:35→06:10)
[2020-02-09] MEDS: OXYcodone IR 5MG TABLET PO PRN ×6 (00:35→23:07)
[2020-02-09] MEDS: methylPREDNISolone SOD SUCC 40 MG/ML IVPush SCH (02:14)
[2020-02-09] MEDS: PIPERACILLIN/TAZO/PMX 3.375GM 50 ML IV SCH ×4 (02:14→20:18)
[2020-02-09 05:39] LABS: MEAN CORPUSCULAR HEMOGLOBIN 26.5 pg (27.5-34.5); MEAN CORPUSCULAR HGB CONC 32.3 g/dL (33.2-36.2); MEAN CORPUSCULAR VOLUME 81.9 fL (81-97); PLATELET COUNT 429 x10^3/uL (130-400); RED BLOOD COUNT 3.62 x10^6/uL (4.38-5.82); RED CELL DISTRIBUTION WIDTH 20.4 % (9.4-14.8)
[2020-02-09 05:45] LABS: ALBUMIN 2.1 g/dL (3.4-5.0); ANION GAP 7 mmol/L (5-15); CALCIUM 7.7 mg/dL (8.5-10.1); CHLORIDE 109 mmol/L (98-107)
[2020-02-09 05:49] LABS: ALANINE AMINOTRANSFERASE 189 U/L (12-78); ALKALINE PHOSPHATASE 165 U/L (45-117); BILIRUBIN,TOTAL 0.3 mg/dL (0.2-1.0); CREATININE 0.61 mg/dL (0.7-1.3)
[2020-02-09] MEDS: PANTOPRAZOLE 40MG TABLET PO SCH (06:10)
[2020-02-09 06:46] LABS: MD YES
[2020-02-09 06:47] LABS: <PLATELET ESTIMATE> ADEQUATE; <PLT MORPHOLOGY> NORMAL PLT MORPH; ANISOCYTOSIS 1+; BANDS%(MANUAL) 2 % (0-7); HYPOCHROMIA 1+; LYMPH#(MANUAL) 1.26 x10^3/uL (1-3.4); LYMPHS% (MANUAL) 5 % (22-44); METAMYELOCYTES# (MANUAL) 0.25 x10^3/uL (0-0); METAMYELOCYTES% (MANUAL) 1 % (0-1); MONOS% (MANUAL) 2 % (2-9); MYELOCYTES# (MANUAL) 0.25 x10^3/uL (0-0); MYELOCYTES% (MANUAL) 1 % (0-0); POLYCHROMASIA 1+; SEG#(MANUAL) 22.34 x10^3/uL (1.8-6.8); SEGS% (MANUAL) 89 % (42-75)
[2020-02-09 07:21] VITALS: BP 131/91
[2020-02-09] MEDS: MAGNESIUM OXIDE 400 MG TABLET PO SCH ×2 (09:51→20:18)
[2020-02-09] MEDS: NEUTRA PHOS K 250 MG TABLET PO SCH ×3 (09:51→20:18)
[2020-02-09] MEDS: MICAFUNGIN 100 MG in SODIUM CHLORIDE 0.9% 100 ML IV SCH (12:44)
[2020-02-09 13:25] VITALS: BP 142/97
[2020-02-09 19:48] VITALS: BP 134/88
[2020-02-09] MEDS: LORazepam 1MG TABLET PO PRN (20:18)
[2020-02-10 01:11] VITALS: BP 136/92
[2020-02-10] MEDS: PIPERACILLIN/TAZO/PMX 3.375GM 50 ML IV SCH ×2 (02:26→07:54)
[2020-02-10 05:04] LABS: ALBUMIN 1.9 g/dL (3.4-5.0); ANION GAP 5 mmol/L (5-15); CALCIUM 7.7 mg/dL (8.5-10.1); CHLORIDE 107 mmol/L (98-107)
[2020-02-10 05:08] LABS: ALANINE AMINOTRANSFERASE 211 U/L (12-78); ALKALINE PHOSPHATASE 144 U/L (45-117); BILIRUBIN,TOTAL 0.3 mg/dL (0.2-1.0); CREATININE 0.62 mg/dL (0.7-1.3); TOTAL PROTEIN 5.1 g/dL (6.4-8.2)
[2020-02-10 05:09] LABS: MEAN CORPUSCULAR HEMOGLOBIN 26.7 pg (27.5-34.5); MEAN CORPUSCULAR HGB CONC 32.5 g/dL (33.2-36.2); MEAN CORPUSCULAR VOLUME 82.3 fL (81-97); MEAN PLATELET VOLUME 7.8 fL (7.4-10.4); PLATELET COUNT 390 x10^3/uL (130-400); RED BLOOD COUNT 3.27 x10^6/uL (4.38-5.82)
[2020-02-10] MEDS: PANTOPRAZOLE 40MG TABLET PO SCH (05:22)
[2020-02-10] MEDS: OXYcodone IR 5MG TABLET PO PRN ×4 (05:22→21:13)
[2020-02-10 05:46] LABS: MD YES
[2020-02-10 05:47] LABS: BAND#(MANUAL) 0.26 x10^3/uL; BANDS%(MANUAL) 1 % (0-7); LYMPH#(MANUAL) 3.14 x10^3/uL (1-3.4); LYMPHS% (MANUAL) 12 % (22-44); METAMYELOCYTES# (MANUAL) 0.26 x10^3/uL (0-0); METAMYELOCYTES% (MANUAL) 1 % (0-1); MONOS#(MANUAL) 0.79 x10^3/uL (0.3-2.7); MONOS% (MANUAL) 3 % (2-9); MYELOCYTES# (MANUAL) 0.52 x10^3/uL (0-0); MYELOCYTES% (MANUAL) 2 % (0-0); SEG#(MANUAL) 21.22 x10^3/uL (1.8-6.8); SEGS% (MANUAL) 81 % (42-75)
[2020-02-10 05:49] LABS: ANISOCYTOSIS 1+; NRBC % (MANUAL) 1 % (0-1); POLYCHROMASIA 1+
[2020-02-10 05:50] LABS: <PLATELET ESTIMATE> ADEQUATE; <PLT MORPHOLOGY> NORMAL PLT MORPH; HYPERSEG PMNs 1+; HYPOCHROMIA 1+
[2020-02-10] MEDS ORDERED: ATROPINE SYRINGE 0.1 MG/ML, 10ML ONE (05:59)
[2020-02-10] MEDS ORDERED: ATROPINE SYRINGE 0.1 MG/ML, 10ML IVPush ONE (06:00)
[2020-02-10 06:30] LABS: TROPONIN I < 0.015 ng/mL (0.000-0.045)
[2020-02-10] MEDS ORDERED: MAGNESIUM SULFATE PMX 2GM/50ML 50 ML IV ONE (07:30)
[2020-02-10] MEDS: NEUTRA PHOS K 250 MG TABLET PO SCH ×3 (07:53→21:13)
[2020-02-10] MEDS: MAGNESIUM OXIDE 400 MG TABLET PO SCH ×2 (07:53→21:13)
[2020-02-10] MEDS: POTASSIUM CHLORIDE 20 MEQ TAB.ER.PRT PO SCH ×2 (07:54→16:23)
[2020-02-10 08:05] VITALS: BP 117/89
[2020-02-10] MEDS: ACETAMINOPHEN 325 MG TABLET PO PRN (10:09)
[2020-02-10] MEDS: MICAFUNGIN 100 MG in SODIUM CHLORIDE 0.9% 100 ML IV SCH (11:46)
[2020-02-10 12:05] VITALS: BP 121/84
[2020-02-10] MEDS: PIPERACILLIN/TAZO/PMX 4.5GM 100 ML IV SCH ×2 (13:29→21:13)
[2020-02-10 18:36] VITALS: BP 127/80
[2020-02-10] MEDS: LORazepam 1MG TABLET PO PRN (23:06)
[2020-02-11 01:37] VITALS: BP 125/84
[2020-02-11] MEDS: OXYcodone IR 5MG TABLET PO PRN ×4 (04:22→19:59)
[2020-02-11] MEDS: ACETAMINOPHEN 325 MG TABLET PO PRN ×3 (04:22→19:57)
[2020-02-11 04:58] LABS: MEAN CORPUSCULAR HEMOGLOBIN 26.3 pg (27.5-34.5); MEAN CORPUSCULAR HGB CONC 31.6 g/dL (33.2-36.2); MEAN CORPUSCULAR VOLUME 83.3 fL (81-97); MEAN PLATELET VOLUME 7.6 fL (7.4-10.4); PLATELET COUNT 369 x10^3/uL (130-400); RED BLOOD COUNT 3.33 x10^6/uL (4.38-5.82); RED CELL DISTRIBUTION WIDTH 24.6 % (9.4-14.8)
[2020-02-11 05:04] LABS: ALANINE AMINOTRANSFERASE 159 U/L (12-78); ALBUMIN 1.8 g/dL (3.4-5.0); ANION GAP 5 mmol/L (5-15); CALCIUM 7.7 mg/dL (8.5-10.1); CHLORIDE 108 mmol/L (98-107); CREATININE 0.47 mg/dL (0.7-1.3)
[2020-02-11 05:06] LABS: ALKALINE PHOSPHATASE 115 U/L (45-117); BILIRUBIN,TOTAL 0.3 mg/dL (0.2-1.0)
[2020-02-11] MEDS: PIPERACILLIN/TAZO/PMX 4.5GM 100 ML IV SCH ×3 (05:30→21:47)
[2020-02-11] MEDS: PANTOPRAZOLE 40MG TABLET PO SCH (05:30)
[2020-02-11 05:47] LABS: MD YES
[2020-02-11 05:48] LABS: BANDS%(MANUAL) 1 % (0-7); EOS% (MANUAL) 1 % (1-7); LYMPH#(MANUAL) 3.25 x10^3/uL (1-3.4); LYMPHS% (MANUAL) 16 % (22-44); METAMYELOCYTES% (MANUAL) 1 % (0-1); MONOS#(MANUAL) 0.41 x10^3/uL (0.3-2.7); MONOS% (MANUAL) 2 % (2-9); SEG#(MANUAL) 16.04 x10^3/uL (1.8-6.8); SEGS% (MANUAL) 79 % (42-75)
[2020-02-11 05:49] LABS: <PLATELET ESTIMATE> ADEQUATE; <PLT MORPHOLOGY> NORMAL PLT MORPH; ANISOCYTOSIS 1+; HYPOCHROMIA 1+; POLYCHROMASIA 1+
[2020-02-11 05:50] LABS: HYPERSEG PMNs 1+
[2020-02-11 07:09] VITALS: BP 138/89
[2020-02-11] MEDS: MAGNESIUM OXIDE 400 MG TABLET PO SCH ×2 (09:05→21:46)
[2020-02-11] MEDS: NEUTRA PHOS K 250 MG TABLET PO SCH ×3 (09:06→21:46)
[2020-02-11] MEDS: MICAFUNGIN 100 MG in SODIUM CHLORIDE 0.9% 100 ML IV SCH (13:14)
[2020-02-11 14:23] VITALS: BP 131/91
[2020-02-11 19:14] VITALS: BP 121/82
[2020-02-12 00:31] VITALS: BP 114/78
[2020-02-12] MEDS: OXYcodone IR 5MG TABLET PO PRN ×5 (01:05→20:36)
[2020-02-12] MEDS: ACETAMINOPHEN 325 MG TABLET PO PRN ×4 (01:05→20:37)
[2020-02-12 04:42] LABS: ALANINE AMINOTRANSFERASE 130 U/L (12-78); ANION GAP 2 mmol/L (5-15); CALCIUM 8.5 mg/dL (8.5-10.1); CHLORIDE 107 mmol/L (98-107)
[2020-02-12 04:47] LABS: ALKALINE PHOSPHATASE 135 U/L (45-117); BILIRUBIN,TOTAL 0.3 mg/dL (0.2-1.0); CREATININE 0.39 mg/dL (0.7-1.3); TOTAL PROTEIN 5.7 g/dL (6.4-8.2)
[2020-02-12 04:54] LABS: MEAN CORPUSCULAR HEMOGLOBIN 26.7 pg (27.5-34.5); MEAN CORPUSCULAR HGB CONC 32.1 g/dL (33.2-36.2); MEAN CORPUSCULAR VOLUME 83.3 fL (81-97); MEAN PLATELET VOLUME 7.9 fL (7.4-10.4); PLATELET COUNT 330 x10^3/uL (130-400); RED BLOOD COUNT 3.19 x10^6/uL (4.38-5.82)
[2020-02-12 05:29] LABS: MD YES
[2020-02-12 05:30] LABS: LYMPH#(MANUAL) 3.21 x10^3/uL (1-3.4); LYMPHS% (MANUAL) 19 % (22-44); MONOS#(MANUAL) 0.34 x10^3/uL (0.3-2.7); MONOS% (MANUAL) 2 % (2-9); SEG#(MANUAL) 13.35 x10^3/uL (1.8-6.8); SEGS% (MANUAL) 79 % (42-75)
[2020-02-12 05:31] LABS: <PLATELET ESTIMATE> ADEQUATE; <PLT MORPHOLOGY> NORMAL PLT MORPH; ANISOCYTOSIS 1+; HYPOCHROMIA 1+; POLYCHROMASIA 1+
[2020-02-12] MEDS: PIPERACILLIN/TAZO/PMX 4.5GM 100 ML IV SCH ×3 (05:45→21:47)
[2020-02-12] MEDS: PANTOPRAZOLE 40MG TABLET PO SCH (05:45)
[2020-02-12 07:08] VITALS: BP 119/84
[2020-02-12] MEDS: NEUTRA PHOS K 250 MG TABLET PO SCH (09:50)
[2020-02-12] MEDS: MAGNESIUM OXIDE 400 MG TABLET PO SCH ×2 (09:50→20:36)
[2020-02-12] MEDS: MICAFUNGIN 100 MG in SODIUM CHLORIDE 0.9% 100 ML IV SCH (12:14)
[2020-02-12] MEDS ORDERED: SENNA/DOCUSATE TABLET PO PRN (13:00)
[2020-02-12 14:22] VITALS: BP 120/87
[2020-02-12 19:22] VITALS: BP 136/88
[2020-02-13 00:51] VITALS: BP 135/92
[2020-02-13] MEDS: ACETAMINOPHEN 325 MG TABLET PO PRN ×2 (01:58→09:46)
[2020-02-13] MEDS: OXYcodone IR 5MG TABLET PO PRN ×4 (01:59→21:32)
[2020-02-13 05:38] LABS: MEAN CORPUSCULAR HEMOGLOBIN 26.9 pg (27.5-34.5); MEAN CORPUSCULAR HGB CONC 31.9 g/dL (33.2-36.2); MEAN CORPUSCULAR VOLUME 84.1 fL (81-97); MEAN PLATELET VOLUME 7.9 fL (7.4-10.4); PLATELET COUNT 363 x10^3/uL (130-400); RED BLOOD COUNT 3.33 x10^6/uL (4.38-5.82); RED CELL DISTRIBUTION WIDTH 25.4 % (9.4-14.8)
[2020-02-13] MEDS: PIPERACILLIN/TAZO/PMX 4.5GM 100 ML IV SCH ×3 (05:40→21:45)
[2020-02-13] MEDS: PANTOPRAZOLE 40MG TABLET PO SCH (05:40)
[2020-02-13 05:44] LABS: ALBUMIN 2.1 g/dL (3.4-5.0); ANION GAP 4 mmol/L (5-15); CALCIUM 8.6 mg/dL (8.5-10.1); CHLORIDE 108 mmol/L (98-107)
[2020-02-13 05:48] LABS: ALANINE AMINOTRANSFERASE 126 U/L (12-78); ALKALINE PHOSPHATASE 154 U/L (45-117); BILIRUBIN,TOTAL 0.3 mg/dL (0.2-1.0); CREATININE 0.42 mg/dL (0.7-1.3)
[2020-02-13 06:40] LABS: BASOPHILS # (AUTO) 0.01 x10^3/uL (0-0.1); BASOPHILS % (AUTO) 0 % (0-1); EOSINOPHILS # (AUTO) 0.09 x10^3/uL (0-0.4); EOSINOPHILS % (AUTO) 1 % (1-7); LYMPHOCYTES # (AUTO) 2.13 x10^3/uL (1-3.4); LYMPHOCYTES % (AUTO) 13 % (22-44); MD SCAN; MONOCYTES # (AUTO) 0.49 x10^3/uL (0.2-0.8); MONOCYTES % (AUTO) 3 % (2-9); NEUTROPHILS # (AUTO) 13.64 x10^3/uL (1.8-6.8); NEUTROPHILS % (AUTO) 83 % (42-75)
[2020-02-13 06:55] VITALS: BP 128/85
[2020-02-13] MEDS: MAGNESIUM OXIDE 400 MG TABLET PO SCH ×2 (09:46→21:31)
[2020-02-13 12:47] VITALS: BP 122/63
[2020-02-13] MEDS: MICAFUNGIN 100 MG in SODIUM CHLORIDE 0.9% 100 ML IV SCH (13:14)
[2020-02-13 20:14] VITALS: BP 133/91
[2020-02-14 02:04] VITALS: BP 135/87
[2020-02-14] MEDS: OXYcodone IR 5MG TABLET PO PRN ×5 (03:14→22:58)
[2020-02-14 05:19] LABS: HCT (SEDRATE) 27.3 % (39.2-51.8)
[2020-02-14 05:21] LABS: MEAN CORPUSCULAR HEMOGLOBIN 26.9 pg (27.5-34.5); MEAN CORPUSCULAR HGB CONC 31.7 g/dL (33.2-36.2); MEAN CORPUSCULAR VOLUME 84.6 fL (81-97); MEAN PLATELET VOLUME 7.7 fL (7.4-10.4); PLATELET COUNT 394 x10^3/uL (130-400); RED BLOOD COUNT 3.26 x10^6/uL (4.38-5.82); RED CELL DISTRIBUTION WIDTH 26.5 % (9.4-14.8)
[2020-02-14 05:28] LABS: ALBUMIN 2.2 g/dL (3.4-5.0); ANION GAP 5 mmol/L (5-15); CALCIUM 8.5 mg/dL (8.5-10.1); CHLORIDE 107 mmol/L (98-107)
[2020-02-14 05:36] LABS: ALANINE AMINOTRANSFERASE 133 U/L (12-78); ALKALINE PHOSPHATASE 154 U/L (45-117); BILIRUBIN,TOTAL 0.2 mg/dL (0.2-1.0); CREATININE 0.46 mg/dL (0.7-1.3); TOTAL PROTEIN 6.2 g/dL (6.4-8.2)
[2020-02-14] MEDS: PIPERACILLIN/TAZO/PMX 4.5GM 100 ML IV SCH ×3 (05:42→22:06)
[2020-02-14] MEDS: PANTOPRAZOLE 40MG TABLET PO SCH (05:42)
[2020-02-14 05:55] LABS: BASOPHILS # (AUTO) 0.01 x10^3/uL (0-0.1); BASOPHILS % (AUTO) 0 % (0-1); EOSINOPHILS # (AUTO) 0.07 x10^3/uL (0-0.4); EOSINOPHILS % (AUTO) 0 % (1-7); LYMPHOCYTES # (AUTO) 2.58 x10^3/uL (1-3.4); LYMPHOCYTES % (AUTO) 16 % (22-44); MD SCAN; MONOCYTES # (AUTO) 0.66 x10^3/uL (0.2-0.8); MONOCYTES % (AUTO) 4 % (2-9); NEUTROPHILS # (AUTO) 12.68 x10^3/uL (1.8-6.8); NEUTROPHILS % (AUTO) 79 % (42-75)
[2020-02-14 06:49] VITALS: BP 121/80
[2020-02-14] MEDS: MAGNESIUM OXIDE 400 MG TABLET PO SCH ×2 (08:19→20:35)
[2020-02-14] MEDS: ACETAMINOPHEN 325 MG TABLET PO PRN ×3 (10:19→18:46)
[2020-02-14] MEDS: MICAFUNGIN 100 MG in SODIUM CHLORIDE 0.9% 100 ML IV SCH (11:58)
[2020-02-14 12:33] VITALS: BP 134/94
[2020-02-14 19:27] VITALS: BP 128/89
[2020-02-14] MEDS: LORazepam 1MG TABLET PO PRN (22:58)
[2020-02-15 01:06] VITALS: BP 123/79
[2020-02-15] MEDS: OXYcodone IR 5MG TABLET PO PRN ×5 (03:20→22:11)
[2020-02-15] MEDS: PANTOPRAZOLE 40MG TABLET PO SCH (05:59)
[2020-02-15] MEDS: PIPERACILLIN/TAZO/PMX 4.5GM 100 ML IV SCH ×3 (06:00→22:11)
[2020-02-15 06:34] VITALS: BP 121/79
[2020-02-15] MEDS: MAGNESIUM OXIDE 400 MG TABLET PO SCH ×2 (09:11→20:11)
[2020-02-15] MEDS: ACETAMINOPHEN 325 MG TABLET PO PRN ×2 (09:11→14:01)
[2020-02-15] MEDS: MICAFUNGIN 100 MG in SODIUM CHLORIDE 0.9% 100 ML IV SCH (11:35)
[2020-02-15 12:12] VITALS: BP 129/85
[2020-02-15] MEDS ORDERED: OMNIPAQUE 350 MG/ML, 100ML BOTTLE ONE (13:09)
[2020-02-15] MEDS: LORazepam 1MG TABLET PO PRN (18:11)
[2020-02-15 19:09] VITALS: BP 116/66
[2020-02-16 01:04] VITALS: BP 124/79
[2020-02-16] MEDS: OXYcodone IR 5MG TABLET PO PRN ×4 (02:53→18:08)
[2020-02-16] MEDS: PANTOPRAZOLE 40MG TABLET PO SCH (05:21)
[2020-02-16] MEDS: PIPERACILLIN/TAZO/PMX 4.5GM 100 ML IV SCH (05:21)
[2020-02-16 06:47] VITALS: BP 127/87
[2020-02-16] MEDS: MAGNESIUM OXIDE 400 MG TABLET PO SCH (07:56)
[2020-02-16] MEDS: ACETAMINOPHEN 325 MG TABLET PO PRN (08:10)
[2020-02-16] MEDS: MICAFUNGIN 100 MG in SODIUM CHLORIDE 0.9% 100 ML IV SCH (11:56)
[2020-02-16 13:09] VITALS: BP 116/73
[2020-02-16] MEDS ORDERED: MICA100V3 IV (15:08)
== END 2020-02-16 18:45 | disposition home or self-care (01) | DRG 871 ==
LOC: ED 21:06 → EDIP 23:35 → 3N 01-28 00:50 → 4NE 02-02 12:49 → 4WST 02-03 10:56
PROVIDERS: ADMIT Family Medicine; ATTEND Family Medicine
PROC: 0DBN8ZX Excision of Sigmoid Colon, Via Natural or Artificial Opening Endoscopic, Diagnostic (ICD-10-PCS; 2020-01-29)
PROC: 0DJ08ZZ Inspection of Upper Intestinal Tract, Via Natural or Artificial Opening Endoscopic (ICD-10-PCS; principal; 2020-01-29 09:00)
DX: A41.9 Sepsis, unspecified organism (principal); E43 Unspecified severe protein-calorie malnutrition; K27.4 Chronic or unspecified peptic ulcer, site unspecified, with hemorrhage; K63.1 Perforation of intestine (nontraumatic); K65.8 Other peritonitis; F10.231 Alcohol dependence with withdrawal delirium; F11.20 Opioid dependence, uncomplicated; K50.112 Crohn's disease of large intestine with intestinal obstruction; K56.699 Other intestinal obstruction unspecified as to partial versus complete obstruction; D50.9 Iron deficiency anemia, unspecified; D63.8 Anemia in other chronic diseases classified elsewhere; E83.39 Other disorders of phosphorus metabolism; E83.42 Hypomagnesemia; E87.6 Hypokalemia; F12.10 Cannabis abuse, uncomplicated; G89.29 Other chronic pain; R56.9 Unspecified convulsions; D69.6 Thrombocytopenia, unspecified; R74.0 Nonspecific elevation of levels of transaminase and lactic acid dehydrogenase [LDH]; R41.0 Disorientation, unspecified; Z80.3 Family history of malignant neoplasm of breast; Z83.3 Family history of diabetes mellitus; Z87.891 Personal history of nicotine dependence; Z90.49 Acquired absence of other specified parts of digestive tract; Z91.19 Patient's noncompliance with other medical treatment and regimen; Z93.3 Colostomy status; Z68.21 Body mass index [BMI] 21.0-21.9, adult; Z79.899 Other long term (current) drug therapy
CPT/HCPCS: 36415; 74018; 84145; 87106; 96361; 96365; 96375; 99285; J3490; 71045; 74177; 76700; 80048; 80053; 80069; 80076; 80307; 81001; 81003; 82040; 82272; 82657; 82728; 82962; 83540; 83550; 83605; 83690; 83735; 84100; 84443; 84466; 84484; 85025; 85610; 85651; 86140; 86480; 86705; 86706; 86708; 86709; 86803; 87040; 87186; 87340; 88305; 88307; 93005; C1729; G0378; J0461; J1100; J1170; J1450; J1885; J2175; J2248; J2405; J2543; J2704; J3010; J3360; J3411; J3480; Q9967; C9113; J0330; J2060; J2270; J2920; J3475; J7030; J7040; J7120; J7512; Q9968

== ENCOUNTER 2020-02-23 20:20 | Emergency (ER) | payer MEDICAID ==
[~2020-02-23] VITALS: Ht 172.7 cm; Wt 63.3 kg
[~2020-02-23 20:20] MED LIST: MICA100V3 IV; [UNRECOGNIZED DRUG - OTHER] PO
--- NOTE | 2020-02-23 21:10 | NUR ---
ERP AT BEDSIDE FOR EVAL.
[2020-02-23 21:16] LABS: MEAN CORPUSCULAR HEMOGLOBIN 26.6 pg (27.5-34.5); MEAN CORPUSCULAR HGB CONC 32.1 g/dL (33.2-36.2); MEAN CORPUSCULAR VOLUME 82.9 fL (81-97); MEAN PLATELET VOLUME 7.9 fL (7.4-10.4); PLATELET COUNT 550 x10^3/uL (130-400); RED BLOOD COUNT 3.96 x10^6/uL (4.38-5.82); RED CELL DISTRIBUTION WIDTH 22.3 % (9.4-14.8)
--- NOTE | 2020-02-23 21:17 | NUR ---
C/O RLQ ABD PAIN 06/12. WILL UPDATE ERP.
[2020-02-23 21:18] LABS: ALBUMIN 3.2 g/dL (3.4-5.0); ANION GAP 5 mmol/L (5-15); CALCIUM 9.5 mg/dL (8.5-10.1); CHLORIDE 104 mmol/L (98-107)
[2020-02-23 21:22] LABS: ALANINE AMINOTRANSFERASE 130 U/L (12-78); ALKALINE PHOSPHATASE 186 U/L (45-117); BILIRUBIN,TOTAL 0.3 mg/dL (0.2-1.0); CREATININE 0.79 mg/dL (0.7-1.3); TOTAL PROTEIN 7.8 g/dL (6.4-8.2)
[2020-02-23] MEDS ORDERED: VORI200T2 PO ×2 (21:25→21:31)
--- NOTE | 2020-02-23 21:26 | NUR ---
PT UNABLE TO PROVIDE URINE SAMPLE AT THIS TIME.
[2020-02-23 21:33] LABS: BASOPHILS # (AUTO) 0.09 x10^3/uL (0-0.1); BASOPHILS % (AUTO) 1 % (0-1); EOSINOPHILS # (AUTO) 0.49 x10^3/uL (0-0.4); EOSINOPHILS % (AUTO) 5 % (1-7); LYMPHOCYTES # (AUTO) 2.78 x10^3/uL (1-3.4); LYMPHOCYTES % (AUTO) 29 % (22-44); MD SCAN; MONOCYTES # (AUTO) 0.56 x10^3/uL (0.2-0.8); MONOCYTES % (AUTO) 6 % (2-9); NEUTROPHILS # (AUTO) 5.74 x10^3/uL (1.8-6.8); NEUTROPHILS % (AUTO) 60 % (42-75)
[2020-02-23] MEDS ORDERED: HYDROcodone/APAP 5/325 TABLET ONE (21:41)
[2020-02-23] MEDS ORDERED: HYDROcodone/APAP 5/325 TABLET PO ONE (22:00)
[2020-02-23 22:20] VITALS: BP 113/74
--- NOTE | 2020-02-23 22:21 | NUR ---
PT UNABLE TO LEAVE URINE SAMPLE AT THIS TIME. VSS.
== END 2020-02-23 22:39 | disposition home or self-care (01) ==
LOC: ED 22:34
DX: R10.31 Right lower quadrant pain (principal); R00.0 Tachycardia, unspecified
CPT/HCPCS: 36415; 76705; 80053; 83690; 85025; 93005; 99285

== ENCOUNTER 2020-02-28 12:58 | Outpatient (CLI) | payer MEDICAID ==
[~2020-02-28 12:58] MED LIST changes: +VORI200T2 PO
== END 2020-02-28 23:59 | disposition home or self-care (01) ==
LOC: WOUND 12:58
PROVIDERS: ATTEND Internal Medicine
DX: K94.00 Colostomy complication, unspecified (principal); D63.8 Anemia in other chronic diseases classified elsewhere; G89.29 Other chronic pain; E43 Unspecified severe protein-calorie malnutrition; F11.20 Opioid dependence, uncomplicated; Z90.49 Acquired absence of other specified parts of digestive tract; Z87.891 Personal history of nicotine dependence; Z79.899 Other long term (current) drug therapy; Z68.21 Body mass index [BMI] 21.0-21.9, adult
CPT/HCPCS: 99214